=== PATIENT | male | born 1955 | race Caucasian/White ===

== ENCOUNTER 2020-03-19 00:54 | Emergency (ER) | payer MEDICARE ==
[~2020-03-19] VITALS: Ht 167.6 cm; Wt 61.4 kg
[2020-03-19] MEDS ORDERED: LOFIBRA134 MG PO (01:01)
[2020-03-19] MEDS ORDERED: SYNTHROID 0.10.15 MG PO (01:02)
[2020-03-19] MEDS ORDERED: TRICOR145 MG PO (01:03)
[2020-03-19] MEDS ORDERED: NORCO 325 MG-51 TAB PO (01:58)
[2020-03-19 02:39] VITALS: BP 115/72; PULSE 81
== END 2020-03-19 02:45 | disposition home or self-care (01) ==
LOC: COL.ER 00:54
DX: S09.90XA Unspecified injury of head, initial encounter (principal); S22.42XA Multiple fractures of ribs, left side, initial encounter for closed fracture; E03.9 Hypothyroidism, unspecified; E78.5 Hyperlipidemia, unspecified; Z23 Encounter for immunization; R40.2412 Glasgow coma scale score 13-15, at arrival to emergency department; W19.XXXA Unspecified fall, initial encounter; Y92.009 Unspecified place in unspecified non-institutional (private) residence as the place of occurrence of the external cause